=== PATIENT | male | born 1990 | race Caucasian/White ===

== ENCOUNTER 2018-07-23 13:59 | Emergency (ER) | payer OTHER ==
[2018-07-23] MEDS ORDERED: Proparacaine 0.5% Ophth Soln 15 ML Bottle EYEBOTH STA (15:24)
--- NOTE | 2018-07-23 15:47 | EDM.PDOC ---
ED HPI GENERAL MEDICAL PROBLEM - General Chief Complaint: ENT Problem Stated Complaint: SOMETHING STUCK IN EYE Time Seen by Provider: 07/23/18 15:23 Source of Information: Reports: Patient, Police, RN Notes Reviewed History Limitations: Reports: No Limitations - History of Present Illness INITIAL COMMENTS - FREE TEXT/NARRATIVE: 28-year-old gentleman presents emergency department today with foreign body to his right eye states is been there for about 2 weeks has had discomfort last tetanus was in 2009 Right Eye Pain Score (Numeric/FACES): 5 - Related Data Allergies Allergy/AdvReac Type Severity Reaction Status Date / Time No Known Allergies Allergy Verified 07/23/18 14:31 Home Meds: Home Meds *Eye Drops 1 drop TOP TID 07/23/18 [History] Gentamicin [Gentak 0.3% Ophth Oint] 3.5 gm .XX BID #1 tube 07/23/18 [Rx] Past Medical History Psychiatric History: Reports: Bipolar - Infectious Disease History Infectious Disease History: Reports: Chicken Pox, Measles, Mumps Social & Family History - Tobacco Use Smoking Status *Q: Current Every Day Smoker Years of Tobacco use: 5 Packs/Tins Daily: 0.2 Used Tobacco, but Quit: No Second Hand Smoke Exposure: Yes - Caffeine Use Caffeine Use: Reports: None - Recreational Drug Use Recreational Drug Use: Yes Drug Use in Last 12 Months: Yes Recreational Drug Type: Reports: Marijuana/Hashish Recreational Drug Use Frequency: Daily ED ROS GENERAL - Review of Systems Review Of Systems: See Below HEENT: Reports: Eye Pain ED EXAM GENERAL W FULL EYE - Physical Exam Exam: See Below Exam Limited By: No Limitations General Appearance: Alert, WD/WN, No Apparent Distress Eye Exam: Right Eye: Other (Foreign body present), Bilateral Eye: PERRL Visual Acuity (R) 20/: 50 Eyelids: Bilateral: Normal Appearance Conjunctiva & Sclera: Right: Foreign Body Cornea Exam: Right: Corneal Ulcer Extraocular Movements: Bilateral: Intact Pupils: Normal Accommodation Pupillary Size: Bilateral: 4 mm Pupillary Reaction: Bilateral: Brisk Anterior Chamber: Bilateral: Normal Appearance Course - Vital Signs Last Recorded V/S: Last Vital Signs Temp 96.8 F 07/23/18 14:44 Pulse 91 07/23/18 14:44 Resp 16 07/23/18 14:44 BP 129/67 07/23/18 14:44 Pulse Ox 97 07/23/18 14:44 - Orders/Labs/Meds Meds: Medications Discontinued Medications Generic Name Dose Route Start Last Admin Trade Name Radha PRN Reason Stop Dose Admin Proparacaine HCl 1 ml 07/23/18 15:24 07/23/18 15:36 Proparacaine 0.5% Ophth Soln EYEBOTH 07/23/18 15:25 1 ml NOW STA Administration Departure - Departure Time of Disposition: 15:46 Disposition: Home, Self-Care 01 Condition: Fair Clinical Impression: Corneal ulcer, right Foreign body of right eye Qualifiers: Encounter type: initial encounter Qualified Code(s): T15.91XA - Foreign body on external eye, part unspecified, right eye, initial encounter - Discharge Information Prescriptions: Gentamicin [Gentak 0.3% Ophth Oint] 3.5 gm .XX BID #1 tube Referrals: PCP,None [Primary Care Provider] - Additional Instructions: Take antibiotics for the next 7 days, tetanus was in 2009, recommend repeat tendinosis 2019, recommend follow-up with eye care provider in the next 2-3 days for reevaluation - Assessment/Plan Plan: Assessment Acuity = acute Site and laterality = foreign body right eye with corneal ulcer Etiology = possibly metal or glass Manifestations = none Location of injury = Home Lab values = none Plan Tetanus 2009, placed on gentamicin ophthalmic drops 2 drops twice a day 7 days , follow up with eye care provider 2-3 days for reevaluation This note was dictated using [employer] voice recognition software please call with any questions on syntax or grammar.
== END 2018-07-23 16:00 | disposition home or self-care (01) ==
LOC: JP.ED 13:59
DX: T15.91XA Foreign body on external eye, part unspecified, right eye, initial encounter (principal); H16.001 Unspecified corneal ulcer, right eye; F17.210 Nicotine dependence, cigarettes, uncomplicated
CPT/HCPCS: 99283; A9270